=== PATIENT | male | born 1980 ===

== ENCOUNTER 2017-01-05 10:40 | Emergency (ER) | payer OTHER ==
[2017-01-05 11:15] VITALS: BP 134/90
--- NOTE | 2017-01-05 12:09 | UC ---
Throat Pain/Nasal Ricardo HPI - HPI Summary HPI Summary: St with a mild productive cough starting a week ago. was tx for strep 2 weeks ago, two children both had positive strep tests yesterday. Denies fever, vomiting, rash, or nasal congestion. Does not feel very sick, just unsure of whether he needs treatment. - History of Current Complaint Chief Complaint: UCGeneralIllness Stated Complaint: SORE THROAT (FAMILY HAS STREP) Time Seen by Provider: 01/05/17 11:44 Hx Obtained From: Patient Onset/Duration: Gradual Onset, Lasting Days Cough: Productive Associated Signs & Symptoms: Negative: Wheezing, Hoarseness, Nasal Discharge, Fever - Allergies/Home Medications Allergies/Adverse Reactions: Allergies Allergy/AdvReac Type Severity Reaction Status Date / Time No Known Allergies Allergy Verified 01/05/17 11:15 Home Medications: Home Medications NK [No Home Medications Reported] 01/05/17 [History Confirmed 01/05/17] PMH/Surg Hx/FS Hx/Imm Hx Previously Healthy: Yes - Surgical History Surgical History: None - Family History Known Family History: Positive: Hypertension - Social History Lives: With Family Alcohol Use: None Substance Use Type: None Smoking Status (MU): Never Smoked Tobacco Review of Systems Constitutional: Negative Skin: Negative Eyes: Negative ENT: Sore Throat Respiratory: Cough Cardiovascular: Negative Gastrointestinal: Negative Genitourinary: Negative Motor: Negative Neurovascular: Negative Musculoskeletal: Negative Neurological: Negative Psychological: Negative All Other Systems Reviewed And Are Negative: Yes Physical Exam Triage Information Reviewed: Yes Appearance: Well-Appearing, No Pain Distress, Well-Nourished Vital Signs: Initial Vital Signs Temp 98.6 F 01/05/17 11:11 Pulse 58 01/05/17 11:11 Resp 14 01/05/17 11:11 BP 134/90 01/05/17 11:11 Pulse Ox 99 01/05/17 11:11 Vital Signs Reviewed: Yes Eye Exam: Normal, Other - PERRL Eyes: Positive: Conjunctiva Clear ENT: Positive: Hearing grossly normal, Pharynx normal - prominent blood vessels , TMs normal. Negative: Tonsillar swelling, Tonsillar exudate Dental Exam: Normal Neck exam: Normal Neck: Positive: Supple, Nontender, No Lymphadenopathy Respiratory Exam: Normal Respiratory: Positive: Chest non-tender, Lungs clear, Normal breath sounds, No respiratory distress, No accessory muscle use Cardiovascular Exam: Normal Cardiovascular: Positive: RRR, No Murmur Musculoskeletal Exam: Normal Neurological Exam: Normal Neurological: Positive: Alert Psychological Exam: Normal Skin Exam: Normal Throat Pain/Nasal Course/Dx - Course Course Of Treatment: Discussed presumptive treatment for strep despite symptoms looking viral versus throat culture versus allowing symptoms to resolve on their own. Explained the risks of rheumatic fever, adverse reaction to antibiotics, and the high likelihood that his illness will resolve without treatment, even if it is strep. Pt does not feel very sick, so he would prefer to run a full throat culture and decide on treatment based on results. - Differential Dx/Diagnosis Provider Diagnoses: pharyngitis. elevated blood pressure due to discomfort Discharge - Discharge Plan Condition: Stable Disposition: HOME Patient Education Materials: Pharyngitis (ED) Referrals: No Primary Care Phys,NOPCP [Primary Care Provider] - Additional Instructions: As we discussed, your symptoms are not strongly suggestive of strep, but you have a high exposure to this from your family members. Our rapid strep testing machine was unable to process your swabs twice, so we have sent a throat culture which should take 2-3 days to complete. If it is positive we will call you and start you on an antibiotic.
--- NOTE | 2017-01-07 21:20 | UC ---
Progress - Progress Note Progress Note: + Group A Strep---please call patient Rx for Amoxicillin 500mg po bid for 10 days sent to pharmacy
== END 2017-01-05 12:10 | disposition home or self-care (01) ==
LOC: UCEAST 10:40
DX: J02.0 Streptococcal pharyngitis (principal); R03.0 Elevated blood-pressure reading, without diagnosis of hypertension
CPT/HCPCS: 87070; 87077; 99201; G0463